=== PATIENT | male | born 1995 | race Caucasian/White ===

== ENCOUNTER 2018-05-04 11:47 | Day surgery (SDC) | payer OTHER ==
[~2018-05-04] VITALS: Ht 180.3 cm; Wt 83.0 kg
[2018-05-04] MEDS ORDERED: LR 1,000 ML IV ONE (12:15)
[2018-05-04] MEDS ORDERED: MIDAZOLAM INJ 2 MG/2 ML VIAL (J2250) As Ordered ONE (13:15)
[2018-05-04] MEDS ORDERED: fentaNYL 100 MCG/2 ML INJECTION (J3010) As Ordered ONE (13:16)
[2018-05-04] MEDS ORDERED: EPINEPHrine 1MG/ML INJ 30ML MD-VIAL As Ordered ONE (13:18)
[2018-05-04] MEDS ORDERED: LIDOCAINE W/EPINEPHRINE 1% 20ML VIAL As Ordered ONE (13:18)
[2018-05-04] MEDS ORDERED: METHYLENE BLUE 0.5% (5MG/ML) 10 ML AMP (PROVAYBLUE)(Q9968 PER 1MG) As Ordered ONE (13:18)
[2018-05-04] MEDS ORDERED: dexameTHASONE 4 MG/ML 1ML VIAL (J1100) As Ordered ONE (13:55)
[2018-05-04] MEDS ORDERED: ONDANSETRON 4MG/2ML VIAL (J2405) As Ordered ONE (13:55)
[2018-05-04] MEDS ORDERED: ROCURONIUM BROMIDE 50 MG/5 ML VIAL As Ordered ONE (13:55)
[2018-05-04] MEDS ORDERED: KETOROLAC 60 MG/2 ML VIAL (J1885) As Ordered ONE (13:55)
[2018-05-04] MEDS ORDERED: PROPOFOL 200 MG/20 ML VIAL As Ordered ONE (13:55)
[2018-05-04] MEDS ORDERED: LIDOCAINE 2% INJ 100 MG/5 ML SDV (FOR ANES.) As Ordered ONE (13:55)
[2018-05-04] MEDS ORDERED: SUGAMMADEX SODIUM 500 MG/5 ML VIAL (BRIDION) As Ordered ONE (14:04)
[2018-05-04] MEDS ORDERED: LR 1,000 ML IV SCH ×3 (14:45→15:30)
[2018-05-04] MEDS ORDERED: ACETAMINOPH W/CODEINE #3 TAB UD PO PRN (14:45)
[2018-05-04] MEDS ORDERED: ACETAMINOPHEN/CODEINE 300MG/30MG 12.5 ML UDC PO PRN (15:30)
[2018-05-04] MEDS ORDERED: PERCOCET 5MG/325MG TAB PO PRN (15:30)
[2018-05-04] MEDS ORDERED: fentaNYL 100 MCG/2 ML INJECTION (J3010) IV PRN (15:30)
[2018-05-04 16:45] VITALS: BP 121/83
--- NOTE | 2018-05-05 13:40 | RO ---
DATE OF PROCEDURE: 05/04/2018 PREOPERATIVE DIAGNOSES: Deviated nasal septum, chronic rhinitis. POSTOPERATIVE DIAGNOSES: Deviated nasal septum, chronic rhinitis. PROCEDURES: Septoplasty, bilateral turbinectomy. SURGEON: Dr. Shay Bonilla [employer]ATOR [employer] TENDER: ANESTHESIA: . DESCRIPTION OF PROCEDURE: Under general anesthesia with the patient intubated, the patient was prepped and draped in the usual sterile manner. I used pledgets of adrenaline 1:100,000 and infiltrated with lidocaine and epinephrine. I made an incision in the left side and elevated the subperichondrial periosteal plane. There was a lot of scarring anteriorly. I elevated the septum on both sides. Once this was done, then I the quadrangular cartilage from the ethmoid plate and maxillary crest and removed portions of both of those. I sectioned the cartilage anteriorly. I moved some bone on the left side, and then I sutured the septum to the anterior nasal spine. The wound was closed with interrupted 4-0 Vicryl. I made an incision anterior inferior to both sides and then removed a portion of the satya on both sides. I sutured that with 4-0 chromic. I put stents in both sides sutured in with a 3-0 silk. The patient tolerated the procedure well and was extubated and transferred to the recovery room in excellent condition.
== END 2018-05-04 16:49 | disposition home or self-care (01) ==
LOC: M SDC 11:47
PROVIDERS: ATTEND Otolaryngology
DX: J34.2 Deviated nasal septum (principal); J31.0 Chronic rhinitis
CPT/HCPCS: 30130; 30520; 88300; 88305; J1100; J1885; J2250; J2405; J3010; Q9968

== ENCOUNTER → 2020-11-08 | Outpatient (CLI) | payer OTHER ==
--- NOTE | 2020-11-12 10:59 | REPVR ---
PROCEDURE INFORMATION: Exam: CT Maxillofacial Without Contrast, Sinus Exam date and time: 11/08/2020 11:55 AM Age: 25 years old Clinical indication: Other: Nasal polyp TECHNIQUE: Imaging protocol: CT Maxillofacial without contrast. Focus on the sinuses. Radiation optimization: All CT scans at this facility use at least one of these dose optimization techniques: automated exposure control; mA and/or kV adjustment per patient size (includes targeted exams where dose is matched to clinical indication); or iterative reconstruction. COMPARISON: No relevant prior studies available. FINDINGS: Frontal sinuses: Subtotal opacification is seen in the left frontal sinus with mucous membrane thickening right frontal sinus. Ethmoid air cells: There is extensive opacification throughout the ethmoidal air cells. Sphenoid sinuses: Mucous membrane thickening is seen in both sphenoid sinuses. Maxillary sinuses: There is circumferential mucous membrane thickening noted in the left maxillary sinus. There is mild mucous membrane thickening within the right maxillary sinus. There appear to be bilateral maxillary antrectomies. Nasal cavity/Septum: Both ostiomeatal complex are opacified. Orbital cavity: Orbits are normal. Globes are unremarkable. Bones/joints: Unremarkable. Soft tissues: Unremarkable. IMPRESSION: Extensive sinus disease. Possible bilateral maxillary antrectomies which needs clinical correlation. Electronically signed by: Henrik Brooks On 11/12/2020 10:59:08 AM
== END ==
LOC: M RAD 11:45
PROVIDERS: ATTEND Otolaryngology
DX: J33.9 Nasal polyp, unspecified (principal); J32.4 Chronic pansinusitis

== ENCOUNTER 2020-11-26 10:28 | Day surgery (SDC) | payer OTHER ==
[~2020-11-26] VITALS: Ht 182.9 cm; Wt 91.2 kg
[~2020-11-26 10:28] MED LIST: LR 1,000 ML IV ONE
[2020-11-26] MEDS ORDERED: fentaNYL 100 MCG/2 ML INJECTION As Ordered ONE (11:24)
[2020-11-26] MEDS ORDERED: MIDAZOLAM INJ 2MG/2ML VIAL (J2250 PER 1MG) As Ordered ONE (11:24)
[2020-11-26] MEDS ORDERED: LIDOCAINE 2% 100MG/5ML SDV (FOR ANES.) As Ordered ONE (11:26)
[2020-11-26] MEDS ORDERED: propofoL 200 MG/20 ML VIAL As Ordered ONE (11:31)
[2020-11-26] MEDS ORDERED: ROCURONIUM BROMIDE 50 MG/5 ML VIAL As Ordered ONE (11:31)
[2020-11-26] MEDS ORDERED: dexameTHASONE 4 MG/ML 1ML VIAL (J1100 PER 1MG) As Ordered ONE (11:31)
[2020-11-26] MEDS ORDERED: COCAINE 4% 4ML NASAL SOLUTION BTL As Ordered ONE (11:32)
[2020-11-26] MEDS ORDERED: LIDOCAINE W/EPINEPHRINE 1% 20ML VIAL As Ordered ONE (11:32)
[2020-11-26] MEDS ORDERED: OXYMETAZOLINE 0.05% NASAL SPRAY (AFRIN) As Ordered ONE (11:32)
[2020-11-26] MEDS ORDERED: ACETAMINOPHEN 1000MG 100ML IV BTL (OFIRMEV) (J0131 PER 10MG) As Ordered ONE (12:22)
[2020-11-26] MEDS ORDERED: ONDANSETRON 4MG/2ML VIAL As Ordered ONE (12:45)
[2020-11-26] MEDS ORDERED: SUGAMMADEX SODIUM 500 MG/5 ML VIAL (BRIDION) As Ordered ONE (12:45)
[2020-11-26] MEDS ORDERED: PHENYLephrine 500MCG 5ML (100MCG/ML) SYRINGE As Ordered ONE (12:46)
[2020-11-26] MEDS ORDERED: LR 1,000 ML IV SCH ×2 (14:55→15:00)
[2020-11-26] MEDS ORDERED: PERCOCET 5MG/325MG TAB PO PRN (15:00)
[2020-11-26] MEDS ORDERED: METOCLOPRAMIDE INJ 10MG/2ML VIAL (J2765 PER 1) IV PRN (15:00)
[2020-11-26] MEDS ORDERED: ONDANSETRON 4MG/2ML VIAL IV PRN ×2 (15:00)
[2020-11-26] MEDS ORDERED: fentaNYL 100 MCG/2 ML INJECTION IV PRN (15:00)
[2020-11-26] MEDS ORDERED: MORPHINE 4 MG/ML 1ML VIAL/SYRINGE (J2270) IV PRN (15:00)
[2020-11-26] MEDS ORDERED: ANEXSIA, NORCO 7.5MG/325MG TABLET(HYDROCODONE/APAP) PO PRN (15:00)
[2020-11-26 16:05] VITALS: BP 132/85
== END 2020-11-26 16:15 | disposition home or self-care (01) ==
LOC: M SDC 10:28
PROVIDERS: ATTEND Otolaryngology
DX: J32.9 Chronic sinusitis, unspecified (principal); J33.9 Nasal polyp, unspecified
CPT/HCPCS: 31255; 31267; 31288; 88305; C9046; J0131; J1100; J2250; J2370; J2405; J3010